=== PATIENT | male | born 1960 | race Two or more races ===

== ENCOUNTER 2016-07-28 02:56 | Outpatient (CLI) | payer OTHER ==
--- NOTE | 2016-07-28 11:29 | Diagnostic Imaging Report ---
CT scan of the brain without contrast History: Headache Total DLP equals 654 CTDI equals 35.4 Axial sections were obtained from the base of the skull to the vertex. There is a normal ventricular system size for age. No focal parenchymal lesions are seen. No evidence of any mass effect or shift of midline structures. No extra-axial masses or abnormal fluid collections. Impression: No acute abnormalities
== END 2016-07-28 04:00 ==
LOC: ER 02:56 → RAD 02:56 → ER 04:00
PROVIDERS: ATTEND Emergency Medicine
DX: R51 Headache (principal); E11.9 Type 2 diabetes mellitus without complications; I10 Essential (primary) hypertension
CPT/HCPCS: 70450-TC